=== PATIENT | female | born 2000 | race Caucasian/White ===

== ENCOUNTER 2020-10-02 20:09 | Emergency (ER) | payer OTHER ==
[2020-10-02 20:19] VITALS: TEMP 98.6; BMI 28.1
[2020-10-02] MEDS ORDERED: KETOROLAC TROMETHAMINE 30 MG/1 ML VIAL IM ONE (20:38)
[2020-10-02] MEDS ORDERED: KETOROLAC TROMETHAMINE 30 MG/1 ML VIAL ONE (20:38)
[2020-10-02] MEDS ORDERED: LIDOCAINE 5% TOPICAL PATCH TP ONE (21:23)
[2020-10-02] MEDS ORDERED: LIDOCAINE 5% TOPICAL PATCH ONE (21:25)
[2020-10-02] MEDS ORDERED: METHOCARBAMOL 500 MG TABLET PO ONE (21:25)
[2020-10-02] MEDS ORDERED: METHOCARBAMOL 500 MG TABLET ONE (21:29)
[2020-10-02 21:47] VITALS: BP 130/82; PULSE 97
== END 2020-10-02 21:55 | disposition home or self-care (01) ==
LOC: JERFT 20:09
PROC: 3E0233Z Introduction of Anti-inflammatory into Muscle, Percutaneous Approach (ICD-10-PCS; principal; 2020-10-02)
DX: M25.552 Pain in left hip (principal); S70.02XA Contusion of left hip, initial encounter
CPT/HCPCS: 73523-TC-FY; 99284-25